=== PATIENT | male | born 1990 | race Caucasian/White ===

== ENCOUNTER → 2017-05-11 | Outpatient (REF) | payer BC | LOC: M LAB REF 16:25 | PROVIDERS: ATTEND Surgery | DX: L72.3 Sebaceous cyst (principal) ==

== ENCOUNTER → 2018-08-30 | Outpatient (REF) | payer BC | LOC: M LAB REF 19:21 | DX: J11.89 Influenza due to unidentified influenza virus with other manifestations (principal) | CPT/HCPCS: 87081 ==

== ENCOUNTER → 2018-09-04 | Outpatient (CLI) | payer BC ==
--- NOTE | 2018-09-04 15:57 | REP ---
Chest two views HISTORY: Shortness of breath Comparison: None Patchy density is present in the right upper lobe consistent with an infiltrate. The left lung is clear. The heart is normal in size. The pulmonary vasculature is normal in appearance. The bony structure is intact. IMPRESSION: Right upper lobe infiltrate. Electronically Signed by Rell Byrd MD 09/04/2018 10:14 A
== END ==
LOC: M WUC 09:32
PROVIDERS: ATTEND Physician Assistant
DX: R06.02 Shortness of breath (principal)